=== PATIENT | female | born 1995 | race Caucasian/White ===

== ENCOUNTER 2017-07-19 12:51 | Emergency (ER) | payer OTHER ==
[2017-07-19 14:57] VITALS: BP 119/56
--- NOTE | 2017-07-19 15:16 | UC ---
Eye Complaint HPI - HPI Summary HPI Summary: Per weight loss counselor "left eye redness/drainage since yesterday, was "glued shut this morning", itchy; does not wear contacts, no h/o injury to eye". here w/ her BF Demian. they are students at [employer] but from [facility] [employer] [facility]. -doesn't wear any contacts. + d/c. + URI sx eralier this week with nasal congestion that has since resolved. not painful. vision is nml. no FB. no trauma. - History of Current Complaint Chief Complaint: UCEye Stated Complaint: (L) EYE COMPLAINT Time Seen by Provider: 07/19/17 15:14 Hx Last Menstrual Period: 07/15/17 Pain Intensity: 0 - Allergies/Home Medications Allergies/Adverse Reactions: Allergies Allergy/AdvReac Type Severity Reaction Status Date / Time No Known Allergies Allergy Verified 07/19/17 14:57 PMH/Surg Hx/FS Hx/Imm Hx Previously Healthy: Yes - Surgical History Surgical History: None - Family History Known Family History: Negative: Cardiac Disease - Social History Alcohol Use: None Substance Use Type: None Smoking Status (MU): Never Smoked Tobacco Review of Systems Constitutional: Negative Skin: Negative Eyes: Drainage, Eye Redness, Photophobia ENT: Negative Respiratory: Negative Cardiovascular: Negative Gastrointestinal: Negative Genitourinary: Negative Motor: Negative Neurovascular: Negative Musculoskeletal: Negative Neurological: Negative Psychological: Negative Is Patient Immunocompromised?: No All Other Systems Reviewed And Are Negative: Yes Physical Exam Triage Information Reviewed: Yes Appearance: Well-Appearing, No Pain Distress, Well-Nourished Vital Signs: Initial Vital Signs Temp 98.6 F 07/19/17 14:53 Pulse 81 07/19/17 14:53 Resp 18 07/19/17 14:53 BP 119/56 07/19/17 14:53 Pulse Ox 100 07/19/17 14:53 Vital Signs Reviewed: Yes Eyes: Positive: Conjunctiva Inflamed - left mild-moderate w/ goopy d/c. PERRL, EOMI. mild swelling surrounding. rt eye is nml. ENT Exam: Normal ENT: Positive: Pharynx normal, TMs normal Neck exam: Normal Neck: Positive: Supple, Nontender, No Lymphadenopathy Respiratory Exam: Normal Respiratory: Positive: Lungs clear, Normal breath sounds, No respiratory distress, No accessory muscle use. Negative: Crackles, Rhonchi, Stridor Cardiovascular Exam: Normal Cardiovascular: Positive: RRR, No Murmur, Pulses Normal Musculoskeletal Exam: Normal Neurological Exam: Normal Psychological Exam: Normal Skin Exam: Normal Eye Complaint Course/Dx - Differential Dx/Diagnosis Differential Diagnosis/HQI/PQRI: Conjunctivitis, Periorbital Cellulitis Provider Diagnoses: left conjunctivitis Discharge - Sign-Out/Discharge Documenting (check all that apply): Discharge - Discharge Plan Condition: Stable Disposition: HOME Prescriptions: Gentamicin 0.3% OPHTH.SOLN* 1 drop LEFT EYE Q4H 5 Days #1 btl Patient Education Materials: Conjunctivitis (ED) Referrals: No Primary Care Phys,NOPCP [Primary Care Provider] - Additional Instructions: Follow up with [facility] in 5 days. You should follow up if your symptoms worsen or persist. - Billing Disposition and Condition Condition: STABLE Disposition: HOME
== END 2017-07-19 15:29 | disposition home or self-care (01) ==
LOC: UCCORT 12:51
DX: H10.9 Unspecified conjunctivitis (principal)
CPT/HCPCS: 99202; G0463